=== PATIENT | female | born 2005 | race Caucasian/White ===

== ENCOUNTER → 2025-09-09 | Outpatient (CLI) | payer OTHER, SELFPAY ==
[2025-09-09 15:05] LABS: Hematocrit 40.2 % (37-47); Hemoglobin 13.4 g/dL (12.0-15.0)
== END | disposition home or self-care (01) ==
DX: Z79.899 Other long term (current) drug therapy (principal)
CPT/HCPCS: 36415; 84403; 85014; 85018